=== PATIENT | male | born 1950 | race Two or more races ===

== ENCOUNTER → 2016-09-09 | Day surgery (SDC) | payer OTHER, BC ==
[~2016-09-09] MED LIST: KEFLEX500 MG PO; NORCO 5-325 TA1 EACH PO; PERCOCET 5-3251 EACH PO
--- NOTE | ~2016-09-09 | OR ---
PATIENT'S NAME: YENNY HOLLAND [facility] AGE: 66 Y [address] ROOM: [place] [address] [place] [facility] [place]: 09/09/2016 OR/Procedure Report DISCHARGE DATE: FAMILY PHYSICIAN: PHYSICIAN, UNKNOWN ATTENDING PHYSICIAN: Eduardo Maria SURGEON: Eduardo Maria MD CHEMISTRY INSTRUCTOR: DATE OF PROCEDURE: 09/10/2016 PREOPERATIVE DIAGNOSIS: Closed fracture, left forearm, comminuted, displaced. POSTOPERATIVE DIAGNOSIS: Closed fracture, left forearm, comminuted, displaced. PROCEDURE PERFORMED: Open reduction and internal fixation, left forearm, both bones. ANESTHESIA: Block. INDICATIONS FOR PROCEDURE: Mr. Holland, work injury, closed fracture of the left forearm, for open reduction and internal fixation. The risks, benefits, and alternatives have been discussed. DESCRIPTION OF PROCEDURE: The patient was taken to the operating room. Axillary block had been placed with good level of anesthesia. Prophylactic antibiotics given. Tourniquet was high about the left arm. Prepped with DuraPrep, draped sterilely. Anterior approach to the radius, 10-cm incision centered about the fracture. Dissection through subcutaneous tissues to the fascia. Fascia was opened in the interval between the flexor carpi radialis and the brachial radialis. The radial nerve was taking ulnar-galvan. Superficial branch radial nerve was protected on the radial side. Arm was pronated. Pronator and flexures were released as necessary to expose the surface of the radius. Fracture was anatomically reduced after cleaning and irrigating. A 7 hole AO Synthes plate was positioned. Screws were used for compression for anatomic reduction and good fixation. A 10 cm exposure of the ulnar side between the flexors and extensors. Fracture was reduced. This was a large comminuted fragment that required a lag screw using the AO Synthes system. Then a 7 hole small fragment DCP was placed. Again compression of the fragments. Fixation was excellent. Arm was examined. Full pronation and full supination. Fluoroscopic images were saved which showed the fixation anatomic, perfectly placed, and good screw length. Wounds were irrigated. Flexors reattached with Vicryl. Fascia was closed with 0 Vicryl. Subcuticular closure with 2-0 Vicryl, followed by candis. Was placed in a well-padded coaptation splint. Tourniquet had been deflated after 90 minutes, and meticulous attention to hemostasis with the bipolar. Estimated blood loss PATIENT'S NAME: YENNY HOLLAND [facility] AGE: 66 Y [address] ROOM: [place], [place] [address] [place] [facility] [place]: 09/09/2016 OR/Procedure Report DISCHARGE DATE: FAMILY PHYSICIAN: PHYSICIAN, UNKNOWN ATTENDING PHYSICIAN: Eduardo Maria from the procedure was nil. Fluid replacement was crystalloids. Findings; anatomic reduction with good fixation. To the recovery room in stable condition. Will be discharged to home when meets criteria. Ice and elevate. [place] for pain. Two days of Keflex. Will follow up with Dr. Maria on October 02 at 2:00 p.m. X-rays will be taken at 1:00 p.m. EDUARDO MARIA MD DPM/haroldo /[id number] d: 09/10/16 1338 t: 09/16/16 0828, OPERATIVE SUMMARY
--- NOTE | ~2016-09-09 | ER ---
PATIENT'S NAME: ALEX [facility] AGE: 66 Y [address] ROOM: [place] [address] [place] [facility] [place]: 09/09/2016 ER/Outpatient Report DISCHARGE DATE: FAMILY PHYSICIAN: PHYSICIAN, UNKNOWN ATTENDING PHYSICIAN: Shira Dillon HISTORY OF PRESENT ILLNESS: Mr. Holland is a 66-year-old, right-handed, healthy, male. 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 He was involved in an incident this morning on the [employer] while doing his regular work, he collided with a horse and injured his left forearm. He was evaluated at the [facility], found to have a closed fracture of both bones of the forearm. He presents to the [facility] Room for definitive care. MEDICATIONS: Lisinopril. ALLERGIES: TO PENICILLINS. PAST MEDICAL HISTORY: Hypertension and hypercholesterolemia. SOCIAL HISTORY: He does not smoke. He does not chew. He drinks alcohol, but none this morning. No drug abuse. REVIEW OF SYSTEMS: As above. FAMILY MEDICAL HISTORY: Unremarkable. PERSONAL AND SOCIAL HISTORY: He is . He lives with his in [place]. 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 He enjoys his work. He has 3 children. He has 1 daughter who lives here in [place]. PHYSICAL EXAMINATION: GENERAL: Mr. Holland is a pleasant, male, in no acute distress. HEENT EXAMINATION: He hears and sees. HEART: His pulse rate is regular. LUNGS: He is able to take in a deep breath. ABDOMEN: Benign. EXTREMITIES: The left hand is in a splint. Minimal discomfort on passive PATIENT'S NAME: ALEX [facility] AGE: 66 Y [address] ROOM: [place], [place] [address] [place] [facility] [place]: 09/09/2016 ER/Outpatient Report DISCHARGE DATE: FAMILY PHYSICIAN: PHYSICIAN, UNKNOWN ATTENDING PHYSICIAN: Shira Dillon range of motion of his fingers. NEUROLOGIC EXAMINATION: He has numbness in the left ulnar nerve and median nerve. Generalized weakness in the thenar muscles, extensors, and the intrinsics. VASCULAR: Fingers are warm with good refill. Integument is intact. The splint in place in the left forearm. IMAGING DATA: X-rays were reviewed, comminuted fracture, left forearm, both bones. ASSESSMENT AND PLAN: To the operating room for open reduction and internal fixation of the left forearm. He does have some numbness and weakness of the left hand. We will hopefully see improvement. Understand, it will take approximately 10 to 12 weeks for the bone to heal and to rehab the arm. This injury was caused related to his work injury from today at [employer]. SHIRA DILLON MD DPM/haroldo /[id number] d: 09/09/16 1435 t: 09/10/16 1004, OUTPATIENT REPORT
== END | disposition disaster alternative care site (69) ==
LOC: GMED 11:17 → GACC 12:59 → GSDC 13:45
PROC: 0PSJ04Z Reposition Left Radius with Internal Fixation Device, Open Approach (ICD-10-PCS; principal; 2016-09-09)
PROC: 0PSL04Z Reposition Left Ulna with Internal Fixation Device, Open Approach (ICD-10-PCS; 2016-09-09)
DX: S52.252A Displaced comminuted fracture of shaft of ulna, left arm, initial encounter for closed fracture (principal); S52.92XA Unspecified fracture of left forearm, initial encounter for closed fracture; I10 Essential (primary) hypertension; E78.00 Pure hypercholesterolemia, unspecified; Z79.899 Other long term (current) drug therapy; Z88.0 Allergy status to penicillin; V86.99XA Unspecified occupant of other special all-terrain or other off-road motor vehicle injured in nontraffic accident, initial encounter
CPT/HCPCS: C1713; J2250; J7120

== ENCOUNTER → 2016-10-02 | Outpatient (CLI) | payer OTHER, BC | END | disposition disaster alternative care site (69) | LOC: GRAD 12:00 | DX: S52.92XA Unspecified fracture of left forearm, initial encounter for closed fracture (principal); X58.XXXA Exposure to other specified factors, initial encounter ==